=== PATIENT | female | born 1950 | race Caucasian/White ===

== ENCOUNTER → 2019-03-03 11:13 | Outpatient (CLI) | payer BC, SELFPAY ==
--- NOTE | 2019-03-03 | TISS_PTH ---
PATIENT: NEHEMIAH HYLTON LOC: [facility] U#:[id number] AGE/SX: 75/F ROOM: RE03/03/[address]: Dr. Talon Lopez DDS : 1950 BED: DIS: SPEC #: [id number] RECD: 03/03/19 10:10 STATUS: SHIRA PETRA #: [id number] DASHA: 03/03/19 00:[address]: Talon Lopez DEPT: SURGICAL PATHOLOGY RECD BY: Camila Keene ENTERED: 03/03/19 11:30 SP TYPE: Tissue Bx JUAN DANIEL DR: Kristen Carlson PA-C Tissues: Mouth, NOS Procedures: Surgery Specimen Level IV HEADER OPERATION: Biopsy, palate PRE-OP DIAGNOSIS: Appears as verrucous architecture, squamous papilloma TISSUE SUBMITTED: Palate MICROSCOPIC DIAGNOSIS Palate, biopsy: Hyperkeratosis. No evidence of malignancy. AM:joss 03/04/19 MICROSCOPIC DESCRIPTION Slides are reviewed. GROSS DESCRIPTION Received in fixative is one container labeled with the patient's name and designated palate. The specimen consists of a single irregular fragment of pink-mart soft tissue measuring 0.3 x 0.2 x 0.1 cm. The specimen is totally submitted in one cassette. / SJ:rg 03/03/19 TC:5 CPT: 40333
== END ==
PROVIDERS: Family Provider Family Medicine; PCP Family Medicine; Referring Provider Dentist Oral and Maxillofacial Surgery; Visit Provider Dentist Oral and Maxillofacial Surgery
DX: L85.9 Epidermal thickening, unspecified (principal)
CPT/HCPCS: 88305

== ENCOUNTER → 2019-06-29 12:47 | Outpatient (CLI) | payer MEDICARE, SELFPAY ==
[2019-06-29 12:08] VITALS: BMI 30.5
--- NOTE | 2019-06-29 12:55 | CT_ITS ---
STUDY: LOW DOSE CT LUNG CANCER SCREENING REASON FOR EXAM: Female, 69 years old. TOBACCO USE 1 PPD, 40 YEARS, 151LBS RADIATION DOSAGE (If Supplied By Facility): CTDIvol = ( 2.01 ) mGy, DLP = ( 59.92 ) mGycm TECHNIQUE: No contrast was administered. Low dose technique was utilized (average mAS-38 and kVp 120). 1.25 mm axial source images with a slice interval of 1.25-mm were reconstructed in lung windows. 2.5 mm axial source images with a slice interval of 2.5-mm were reconstructed in lung windows. 5.0 mm axial source images with a slice interval of 5.0-mm were reconstructed in soft tissue windows. Nodule measured using lung windows on PACS and/or independent workstation with automated measurement of minimum and maximum diameter. Nodule measurement reported as average diameter rounded to the nearest whole number. Growth is defined as an increase ins size of greater than 1.5 mm. COMPARISON: None. NODULES: There is an 8.4 mm x 8.4 mm irregular nodular density in the posterior aspect of the right lower lobe as seen on axial image #141. Emphysema: Diffuse emphysematous changes with bullous formation in both lungs. Bilateral apical scarring. Aorta: Atherosclerotic plaque formation. Coronary arteries: Coronary artery calcification. Heart: Calcification of the mitral valve annulus. Pulmonary artery: Unremarkable. Mediastinal nodes: Small benign-appearing mediastinal lymph nodes. Other chest and abdominal findings: Degenerative changes of the thoracic vertebrae. CT/Low Dose CT Lung Screening IMPRESSION: Lung-RADS category 4A - Screening at 3 months wiht LDCT or evaluation with PET/CT may be used. IMPORTANT NOTES FOR USE: ACR Lung-RADS Version 1.0 Assessment Categories Release Date: October 11, 2013 Category: Coded 0-4 bases on nodule(s) with highest degree of suspicion. Negative screen is defined as categories 1 and 2; a positive screen is defined as categories 3 and 4. Category 3 and 4A nodules that are unchanged on interval CT should be coded as category 2, and individuals returned to screening in 12 months. Category 4X: Category 3 or 4 nodules with additional imaging findings that increase the suspicion of lung cancer, such as spiculation, GGN that doubles in size in 1 year, enlarged lymph notes, etc. Category Modifiers: S (significant finding unrelated to lung cancer) and C (prior history of treated lung cancer) may be added to the 0-4 Lung-RADS Electronically Signed: Misha Troncoso, at 13:25 EST , Service support ,
== END ==
PROVIDERS: Family Provider Family Medicine; PCP Family Medicine; Referring Provider Nurse Practitioner Family; Visit Provider Nurse Practitioner Family
DX: F17.209 Nicotine dependence, unspecified, with unspecified nicotine-induced disorders (principal); Z12.2 Encounter for screening for malignant neoplasm of respiratory organs; Z87.891 Personal history of nicotine dependence
CPT/HCPCS: G0297

== ENCOUNTER → 2019-07-12 13:01 | Outpatient (CLI) | payer MEDICARE, SELFPAY ==
[2019-06-30 06:09] VITALS: BMI 30.7
== END ==
LOC: PSN 13:01
PROVIDERS: PCP Family Medicine; Referring Provider Nurse Practitioner Family; Visit Provider Nurse Practitioner Family
DX: F17.209 Nicotine dependence, unspecified, with unspecified nicotine-induced disorders (principal)
CPT/HCPCS: 99407

== ENCOUNTER → 2019-07-28 12:20 | Outpatient (CLI) | payer MEDICARE, SELFPAY ==
[2019-06-30 06:09] VITALS: BMI 30.7
[2019-07-28 12:30] VITALS: PULSE 100; PULSE 117; PULSE 88; PULSE 92; PULSE 93; PULSE 96; PULSE 97; O2SAT 92; O2SAT 94; O2SAT 95; O2SAT 96; O2SAT 97; O2SAT 98
--- NOTE | 2019-07-29 10:50 | PCM.PSN.6M ---
PSN 6 Minute Walk Test - 6 Minute Walk Test 6 Minute Walk Test: 6 Minute Walk Test PSN:6-Minute Walk Test Start: 07/28/19 12:53 Freq: Status: Active Protocol: [id number] Document 07/28/19 12:30 EW (Rec: 07/28/19 12:56 EW [id number]) 6 Minute Walk Test Date Performed 07/28/19 Time Performed 12:30 Height 4 ft 10 in Weight: 150 lb Weight in Pounds 150.[address]: Ac Coats Assistive device used: None Pre-test Oxygen Delivery Method Room Air Pulse Ox (%) 97 Pulse Rate (60-100 beats/min) 88 Dyspnea Dean Scale (0-10) 0 Exertion Dean Scale (6-20) 8 1st minute Oxygen Delivery Method Room Air Pulse Ox (%) 98 Pulse Rate (60-100 beats/min) 93 2nd minute Oxygen Delivery Method Room Air Pulse Ox (%) 94 Pulse Rate (60-100 beats/min) 100 3rd minute Oxygen Delivery Method Room Air Pulse Ox (%) 95 Pulse Rate (60-100 beats/min) 92 4th minute Oxygen Delivery Method Room Air Pulse Ox (%) 94 Pulse Rate (60-100 beats/min) 96 5th minute Oxygen Delivery Method Room Air Pulse Ox (%) 92 Pulse Rate (60-100 beats/min) 92 6th minute Oxygen Delivery Method Room Air Pulse Ox (%) 95 Pulse Rate (60-100 beats/min) 117 H Post-test Oxygen Delivery Method Room Air Pulse Ox (%) 96 Pulse Rate (60-100 beats/min) 97 Dyspnea Dean Scale (0-10) 2 Exertion Dean Scale (6-20) 11 Full Laps Walked 20 Partial Lap, Number of Tiles Walked 14 Total Distance Walked (ft) 1194 - Interpretation Interpretation: The patient ambulated 1194 feet over the course of 6 minutes beginning on room air without assistive devices or breaks. Pretesting oxygen saturation was noted to be 97% on room air. With ambulation, the tam oxygen saturation was 92%. This represents a significant exertional oxygen desaturation. - Recommendations Recommendations: There is no indication for the use of supplemental oxygen at this time. However, close interval follow-up is recommended, given the degree of oxygen desaturation noted during this study.
== END ==
PROVIDERS: Family Provider Family Medicine; PCP Family Medicine; Referring Provider Internal Medicine Critical Care Medicine; Visit Provider Internal Medicine Critical Care Medicine
DX: R06.00 Dyspnea, unspecified (principal); R91.1 Solitary pulmonary nodule; Z72.0 Tobacco use
CPT/HCPCS: 94618; 99407

== ENCOUNTER 2019-07-28 13:33 | Outpatient (RCR) | payer MEDICARE, SELFPAY ==
[2019-06-30 06:09] VITALS: BMI 30.7
== END 2019-08-14 23:59 ==
LOC: PSN 13:33
PROVIDERS: PCP Family Medicine; Referring Provider Nurse Practitioner Family; Visit Provider Nurse Practitioner Family
DX: R91.1 Solitary pulmonary nodule (principal); R06.00 Dyspnea, unspecified; F17.209 Nicotine dependence, unspecified, with unspecified nicotine-induced disorders

== ENCOUNTER → 2019-08-03 13:03 | Outpatient (CLI) | payer MEDICARE, SELFPAY ==
[2019-06-30 06:09] VITALS: BMI 30.7
--- NOTE | 2019-08-03 16:31 | PFTCOMP_ITS ---
COMPLETE PULMONARY FUNCTION TEST INTERPRETATION Brief HPI: Patient is a 69 year old female, currently under the care of myself, who presents to [facility] for complete pulmonary function tests secondary to diagnosis of dyspnea. Respiratory therapist reports good effort and reproducible results. Interpretation: Forced expiration spirometry shows no large airways obstructive ventilatory defect with an FEV1 of 102% predicted. There is no significant bronchodilator response by strict ATS criteria. Spirograms are of good quality and plateau slowly, indicating slowly emptying areas of the lungs. The respiratory flow volume loop shows decreased expiratory flow rates at high lung volumes consistent with small airways obstruction. Lung volumes by body plethysmography show a normal total lung capacity at 4.09 L, 107% predicted. All other lung volumes are within normal limits. Diffusion capacity by carbon monoxide is at the lower limit of normal at 62% predicted. The airway resistance is normal. No previous pulmonary function tests were available for review. Impression: Grossly normal pulmonary function test, but diffusing capacity is at the lower limit of normal, so early pulmonary vascular disorder cannot be excluded.
== END ==
PROVIDERS: Family Provider Family Medicine; PCP Family Medicine; Referring Provider Internal Medicine Critical Care Medicine; Visit Provider Internal Medicine Critical Care Medicine
DX: R06.00 Dyspnea, unspecified (principal); R91.1 Solitary pulmonary nodule; Z72.0 Tobacco use
CPT/HCPCS: 94060; 94726; 94729

== ENCOUNTER 2019-08-25 12:30 | Outpatient (RCR) | payer MEDICARE, SELFPAY ==
[2019-06-30 06:09] VITALS: BMI 30.7
== END 2019-09-14 23:59 ==
LOC: PSN 12:30
PROVIDERS: PCP Family Medicine; Referring Provider Nurse Practitioner Family; Visit Provider Nurse Practitioner Family
DX: F17.219 Nicotine dependence, cigarettes, with unspecified nicotine-induced disorders (principal)
CPT/HCPCS: 99407

== ENCOUNTER → 2019-09-24 12:49 | Outpatient (CLI) | payer MEDICARE, SELFPAY ==
[2019-06-30 06:09] VITALS: BMI 30.7
--- NOTE | 2019-09-24 12:50 | CT_ITS ---
STUDY: CT CHEST WITHOUT CONTRAST REASON FOR EXAM: Female, 69 years old. LUNG NODULE F/U RLL. SMOKER RADIATION DOSAGE (If Supplied By Facility): CTDIvol = ( 11.18 ) mGy, DLP = ( 373.88 ) mGycm TECHNIQUE: Transaxial imaging was performed without the administration of intravenous contrast material. Multiplanar coronal and sagittal images were reformatted. Individualized dose optimization techniques were used for this CT. COMPARISON: Comparison is made with prior study dated June 29, 2019. FINDINGS: Emphysema with subpleural bullous changes worse in the upper lobes. Stable scarring at the lung apices. The previously seen 8 mm x 8.4 mm nodular density in the posterior aspect of the right lower lobe is not seen at this time. There is no demonstrated pleural abnormality. There are calcifications of the coronary arteries. Calcification of the mitral valve annulus. Normal mediastinum. Normal hilar regions. Normal unenhanced pulmonary arteries. Normal aorta arch and descending thoracic aorta. There are multi-level degenerative changes of the thoracic spine. There is no demonstrated abnormality of the visualized upper abdomen. CT/Chest without Contrast IMPRESSION: Stable emphysematous changes with scarring at the lung apices. The previously seen nodular density in the right lower lobe is not seen at this time. Electronically Signed: Misha Troncoso, at 14:40 EDT , Service support ,
== END ==
PROVIDERS: PCP Family Medicine; Referring Provider Internal Medicine Critical Care Medicine; Visit Provider Internal Medicine Critical Care Medicine
DX: R06.00 Dyspnea, unspecified (principal); R91.1 Solitary pulmonary nodule; Z72.0 Tobacco use
CPT/HCPCS: 71250

== ENCOUNTER → 2020-08-31 13:00 | Outpatient (CLI) | payer MEDICARE, SELFPAY ==
[2020-04-05 13:17] VITALS: BMI 33.6
--- NOTE | 2020-08-31 15:53 | PFTCOMP_ITS ---
COMPLETE PULMONARY FUNCTION TEST INTERPRETATION Brief HPI: Patient is a 70 year old female, currently under the care of Betzy Crowe, who presents to [facility] for complete pulmonary function tests secondary to diagnosis of COPD. Respiratory therapist reports good effort and reproducible results. Interpretation: Forced expiration spirometry shows a mild large airways obstructive ventilatory defect with an FEV1 of 103% predicted. There is no significant bronchodilator response by strict ATS criteria. Spirograms are of good quality and plateau slowly, indicating slowly emptying areas of the lungs. The respiratory flow volume loop shows decreased expiratory flow rates at high lung volumes consistent with small airways obstruction. Lung volumes by body plethysmography show a normal total lung capacity at 4.25 L, 106% predicted. All other lung volumes are within normal limits. Diffusion capacity by carbon monoxide is decreased at 57% predicted. The airway resistance is slightly elevated. Compared to previous pulmonary function tests from 08/03/2019, there has been no significant change. Impression: Irreversible mild large airways obstructive ventilatory defect with a disproportionate reduction in diffusing capacity, but no significant metal mover the last year.
== END ==
PROVIDERS: PCP Family Medicine; Referring Provider Nurse Practitioner Acute Care; Visit Provider Nurse Practitioner Acute Care
DX: J44.9 Chronic obstructive pulmonary disease, unspecified (principal)
CPT/HCPCS: 94060; 94726; 94729

== ENCOUNTER → 2021-01-09 13:37 | Outpatient (CLI) | payer MEDICARE, SELFPAY ==
[2020-09-04 13:00] VITALS: BMI 33.9
[2021-01-09 13:09] VITALS: BMI 32.0
--- NOTE | 2021-01-09 13:38 | CT_ITS ---
STUDY: LOW DOSE CT LUNG CANCER SCREENING REASON FOR EXAM: Female, 70 years old. Lung cancer screening -- and amp;gt;30 pack year history, current smoker; asymptomatic RADIATION DOSAGE (If Supplied By Facility): CTDIvol = ( 1.59 ) mGy, DLP = ( 51.82 ) mGycm TECHNIQUE: No contrast was administered. Low dose technique was utilized (average mAS-38 and kVp 120). 1.25 mm axial source images with a slice interval of 1.25-mm were reconstructed in lung windows. 2.5 mm axial source images with a slice interval of 2.5-mm were reconstructed in lung windows. 5.0 mm axial source images with a slice interval of 5.0-mm were reconstructed in soft tissue windows. Nodule measured using lung windows on PACS and/or independent workstation with automated measurement of minimum and maximum diameter. Nodule measurement reported as average diameter rounded to the nearest whole number. Growth is defined as an increase ins size of greater than 1.5 mm. COMPARISON: Comparison is made with prior study dated 06/29/2019. NODULES: 8 mm nodular density in the posterior aspect of the right lower lobe. Mild degree of the reticular nodular scarring at the lung bases. Emphysema: Stable emphysematous changes more prominent in the upper lobes. Endobronchial lesion: None Aorta: Atherosclerotic plaque formation of the aortic arch. Coronary arteries: Coronary artery calcification. Heart: Calcifications mitral valve annulus. Mediastinal nodes: Small benign appearing mediastinal lymph nodes. Other chest and abdominal findings: CT/Low Dose CT Lung Screening IMPRESSION: Lung-RADS category 2 - Continue annual screening with LDCT in 12 months. IMPORTANT NOTES FOR USE: ACR Lung-RADS Version 1.1 Assessment Categories Release Date: 2018 Category: Coded 0-4 bases on nodule(s) with highest degree of suspicion. Negative screen is defined as categories 1 and 2; a positive screen is defined as categories 3 and 4. Category 3 and 4A nodules that are unchanged on interval CT should be coded as category 2, and individuals returned to screening in 12 months. Category 4X: Category 3 or 4 nodules with additional imaging findings that increase the suspicion of lung cancer, such as spiculation, GGN that doubles in size in 1 year, enlarged lymph notes, etc. Category Modifiers: S (significant finding unrelated to lung cancer) Electronically Signed: Misha Troncoso MD at 14:00 EDT , Service support ,
== END ==
PROVIDERS: PCP Family Medicine; Referring Provider Nurse Practitioner Family; Visit Provider Nurse Practitioner Family
DX: Z12.2 Encounter for screening for malignant neoplasm of respiratory organs (principal); Z87.891 Personal history of nicotine dependence
CPT/HCPCS: 71271

== ENCOUNTER → 2021-03-28 13:02 | Outpatient (CLI) | payer MEDICARE, SELFPAY ==
--- NOTE | 2021-03-28 13:07 | ECHOCS_ITS ---
Reason For Study: CAD/ASHD Procedure This was a 2D Doppler, Color Flow transthoracic echocardiogram. The study was technically difficult. Exam performed in department. Left Ventricle Normal LV size. Left ventricular systolic function is normal. The estimated ejection fraction is 65 %. Stage 1 diastolic dysfunction. No regional wall motion abnormalities noted. Right Ventricle Normal RV size. Normal systolic function. Atria Normal left atrium. Normal right atrium. Mitral Valve There is mild to moderate mitral annular calcification. Trivial mitral valve insufficiency. Tricuspid Valve Normal tricuspid valve. Mild tricuspid valve insufficiency. Pulmonary artery systolic pressure is 28 mmHg. Aortic Valve Trisinus/trileaflet aortic valve. Mild focal aortic valve calcification. Mild (1+) aortic valve insufficiency. Pulmonic Valve Normal pulmonic valve. Great Vessels Normal aortic root. The pulmonary artery is normal size. Normal inferior vena cava. Pericardium/Pleural No pericardial effusion. Medication 22 gauge I.V. with prn adaptor inserted into right arm. Performed a rapid injection of agitated mix of 9 cc saline and 1cc air to assess for atrial septal defect. Diluted definity 2ml given slow IV push to enhance endocardial definition. MMode/2D Measurements & Calculations LVIDd: 4.0 cm IVSd: 1.1 cm Ao root diam: 3.2 cm LVIDs: 2.6 cm LVPWd: 1.1 cm RVDd: 2.8 cm FS: 36.0 % LAV(MOD-bp): 41.0 ml LVAd ap4: 29.7 cm2 SV(MOD-sp4): 66.6 ml LAV(MOD-bp) Indexed: 24.6 ml/m2 LVLd ap4: 7.0 cm LAV(MOD-sp2): 38.6 ml EDV(MOD-sp4): 101.1 ml LAV(MOD-sp4): 39.5 ml EDV(sp4-el): 107.3 ml LVAs ap4: 15.2 cm2 LVLs ap4: 5.4 cm ESV(MOD-sp4): 34.5 ml ESV(sp4-el): 36.1 ml EF(MOD-sp4): 65.9 % EF(sp4-el): 66.3 % SV(sp4-el): 71.1 ml LA A4 area: 16.4 cm2 LA dimension(2D): 3.2 cm RA A4 area: 11.1 cm2 Time Measurements MV dec time: 0.31 sec Doppler Measurements & Calculations MV E max rancho: 115.0 cm/sec Lat Peak E' Rancho: 6.7 cm/sec Med Peak E' Rancho: 6.0 cm/sec MV A max rancho: 148.4 cm/sec E/E' lat: 17.1 E/E' med: 19.1 MV E/A: 0.77 MV V2 max: 158.4 cm/sec MV P1/2t max rancho: 105.0 cm/sec Ao V2 max: 158.3 cm/sec MV max P.0 mmHg MV P1/2t: 91.3 msec Ao max P.0 mmHg MV V2 mean: 95.3 cm/sec MV dec slope: 336.8 cm/sec2 MV mean P.2 mmHg MVA(P1/2t): 2.4 cm2 MV V2 VTI: 42.4 cm AI max rancho: 376.6 cm/sec LV V1 max: 110.2 cm/sec PA V2 max: 90.3 cm/sec AI max P.8 mmHg LV V1 max P.9 mmHg AI dec slope: 210.2 cm/sec2 AI P1/2t: 524.7 msec TR max rancho: 248.2 cm/sec MV P1/2t-pr_phl: 89.1 msec TR max P.6 mmHg ECHO/Echo Complete W/ Contrast Interpretation Summary Normal LV size. Left ventricular systolic function is normal. The estimated ejection fraction is 65 %. There is mild to moderate mitral annular calcification. Mild (1+) aortic valve insufficiency. Stage 1 diastolic dysfunction. Ordering Physician: Eloy Chowdary Referring Physician: ASHLEY HART Performed By: Isabella Alarcon RDCS
== END ==
PROVIDERS: PCP Family Medicine; Referring Provider Internal Medicine Cardiovascular Disease; Visit Provider Internal Medicine Cardiovascular Disease
DX: I25.10 Atherosclerotic heart disease of native coronary artery without angina pectoris (principal); R06.09 Other forms of dyspnea
CPT/HCPCS: 93306; Q9957; A4216; C8929; J3490

== ENCOUNTER → 2021-04-04 06:37 | Outpatient (CLI) | payer MEDICARE, SELFPAY ==
--- NOTE | 2021-04-04 13:09 | STRESSREP ---
Stress Test Report Exercise myocardial perfusion stress test. 70-year-old lady with a history of chest pain. Stress protocol: Resting EKG demonstrates normal sinus rhythm with a rate of 65 bpm normal intervals are noted resting blood pressure is 118/84 mmHg. The patient exercised according to regular Ac protocol for 3 minutes and 30 seconds the maximum heart rate attained was 136 bpm which was 90% of maximum protected heart rate the maximum workload was 5.7 metabolic equivalents. At rest there were no ST or T wave changes noted suggest ischemia and at peak exercise upsloping ST changes were noted with did not meet the criteria for ischemia. No clinical angina was noted the test was terminated due to bilateral leg weakness. The peak blood pressure is 146/80 mmHg. Myocardial perfusion protocol. 11.1 mCi of technetium 99m sestamibi was injected at rest. The patient exercised according to regular Ac protocol for 3 minutes and 30 seconds and at peak exercise 33.7 mCi of technetium 99m sestamibi was injected stress images were obtained stress and rest images were reconstructed and compared in the short axis vertical long horizontal long axis. Gated images were also obtained. Perfusion SPECT analysis: Review of the stress images demonstrate normal uptake of tracer noted in all areas of the myocardium. The resting images similarly demonstrate normal uptake of tracer noted in all areas of the myocardium. No areas of reversibility are noted to suggest ischemia and no previous infarct is noted. Gated SPECT analysis: The gated ejection fraction is 77%. Conclusion: Normal exercise myocardial perfusion stress test. Preserved ejection fraction. The low workload attained may affect sensitivity for detection of ischemia.
== END ==
PROVIDERS: PCP Family Medicine; Referring Provider Internal Medicine Cardiovascular Disease; Visit Provider Internal Medicine Cardiovascular Disease
DX: R94.31 Abnormal electrocardiogram [ECG] [EKG] (principal); I05.9 Rheumatic mitral valve disease, unspecified; I25.10 Atherosclerotic heart disease of native coronary artery without angina pectoris; J44.9 Chronic obstructive pulmonary disease, unspecified; R03.0 Elevated blood-pressure reading, without diagnosis of hypertension; R53.83 Other fatigue; R73.03 Prediabetes; E66.9 Obesity, unspecified; F17.200 Nicotine dependence, unspecified, uncomplicated
CPT/HCPCS: 78452; 93017; A9500; A4216

== ENCOUNTER → 2021-06-06 11:50 | Outpatient (CLI) | payer MEDICARE, SELFPAY ==
[2021-06-06 12:52] LABS: Anion Gap 9 (5-15); BUN 15 mg/dL (7-18); BUN/Creat Ratio 19.9 RATIO (10-20); Calcium,Total 9.4 mg/dL (8.5-10.1); Chloride 100 mmol/L (98-107); Creatinine, Serum 0.75 mg/dL (0.55-1.02); EST Glomerular Filtration Rate 81 mL/min (>60); Est Glom Filt Rate - Afr Amer 98 mL/min (>60); Glucose 109 mg/dL (74-106); Potassium 4.1 mmol/L (3.5-5.1); Sodium Level 138 mmol/L (136-145)
== END ==
PROVIDERS: PCP Family Medicine; Referring Provider Nurse Practitioner Gerontology; Visit Provider Nurse Practitioner Gerontology
DX: R03.0 Elevated blood-pressure reading, without diagnosis of hypertension (principal)
CPT/HCPCS: 36415; 80048

== ENCOUNTER 2021-09-05 09:39 | Outpatient (CLI) | payer MEDICARE, SELFPAY ==
[2021-09-05 10:28] LABS: Absolute Lymphocyte Count 1.05 X10^3/uL (0.83-4.51); Absolute Neutrophil Count 5.1 X10^3/uL (2.0-7.7); Basophil# 0.06 X10^3/uL; Basophil% 0.9 % (0-1); Eosinophil# 0.07 X10^3/uL; Hematocrit 43.8 % (37-47); Hemoglobin 14.8 g/dL (12.0-15.0); Lymphocyte # 1.05 X10^3/ul (0.83-4.51); Lymphocyte % 15.1 % (19-41); Mean Corp Hgb Conc 33.8 g/dL (32-36); Mean Corpuscular Hgb 31.1 pg (27.0-32.0); Mean Platelet Vol. 9.4 fl (6.2-12.0); Monocyte# 0.66 X10^3/uL; Monocyte% 9.5 % (0-10); NRBC Flagged by Analyzer 0 % (0-5); Neutrophil # 5.09 X10^3/uL (2.7-7.7); Neutrophil % 72.9 % (47-70); Platelet Count 195 K/mm3 (150-450); RBC Distribution Width CV 13.9 % (11.6-14.6); RBC Distribution Width SD 47.5 fl (35.1-43.9); Red Blood Count 4.76 M/mm3 (4.2-5.4)
[2021-09-05 11:04] LABS: Anion Gap 5 (5-15); BUN 25 mg/dL (7-18); BUN/Creat Ratio 29.3 RATIO (10-20); Calcium,Total 10.1 mg/dL (8.5-10.1); Chloride 100 mmol/L (98-107); Creatinine, Serum 0.85 mg/dL (0.55-1.02); EST Glomerular Filtration Rate 70 mL/min (>60); Est Glom Filt Rate - Afr Amer 85 mL/min (>60); Glucose 105 mg/dL (74-106); Potassium 4.2 mmol/L (3.5-5.1); Sodium Level 137 mmol/L (136-145); T4 Free Direct 0.93 ng/dL (0.76-1.46); Thyroid Stim Hormone (TSH) 3.64 uIU/mL (0.358-3.74)
== END 2021-09-05 23:59 | disposition home or self-care (01) ==
LOC: LAB 09:40
PROVIDERS: PCP Family Medicine; Referring Provider Nurse Practitioner Gerontology; Visit Provider Nurse Practitioner Gerontology
DX: R53.83 Other fatigue (principal)
CPT/HCPCS: 36415; 80048; 84439; 84443; 85025

== ENCOUNTER → 2022-02-19 | Outpatient (CLI) | payer MEDICARE, SELFPAY ==
--- NOTE | 2022-02-19 13:15 | CT_ITS ---
STUDY: LOW DOSE CT LUNG CANCER SCREENING REASON FOR EXAM: Female, 71 years old. Lung cancer screening -- and gt; 30 ppd; current smoker; asymptomatic RADIATION DOSAGE (If Supplied By Facility): CTDIvol = ( 3.02 ) mGy, DLP = ( 97.42 ) mGycm TECHNIQUE: No contrast was administered. Low dose technique was utilized (average mAS-38 and kVp 120). 1.25 mm axial source images with a slice interval of 1.25-mm were reconstructed in lung windows. 2.5 mm axial source images with a slice interval of 2.5-mm were reconstructed in lung windows. 5.0 mm axial source images with a slice interval of 5.0-mm were reconstructed in soft tissue windows. COMPARISON: 01/09/2021 NODULES: NODULES: The previously described 8 mm nodular density in the posterior aspect of the right lower lobe is no longer seen. There is an elongated opacity in the anterior segment of right upper lobe axial image #92 through 96 most likely represent a scar. There is a subpleural 3 mm nodule in the superior segment of the right lung upper lobe axial image #50 is stable since the previous study. Emphysema: Stable emphysematous changes more prominent in the upper lobes. Endobronchial lesion: None Aorta: Atherosclerotic plaque formation of the aortic arch. There is an ascending aortic aneurysm measures 4.1 cm. Coronary arteries: Coronary artery calcification. Heart: Calcifications mitral valve annulus. Mediastinal nodes: Small benign appearing mediastinal lymph nodes. Other chest and abdominal findings: CT/Low Dose CT Lung Screening IMPRESSION: Lung-RADS category 2 - Continue annual screening with LDCT in 12 months. IMPORTANT NOTES FOR USE: ACR Lung-RADS Version 1.1 Assessment Categories Release Date: 2018 Category: Coded 0-4 bases on nodule(s) with highest degree of suspicion. Negative screen is defined as categories 1 and 2; a positive screen is defined as categories 3 and 4. Category 3 and 4A nodules that are unchanged on interval CT should be coded as category 2, and individuals returned to screening in 12 months. Category 4X: Category 3 or 4 nodules with additional imaging findings that increase the suspicion of lung cancer, such as spiculation, GGN that doubles in size in 1 year, enlarged lymph notes, etc. Category Modifiers: S (significant finding unrelated to lung cancer) Electronically Signed: Germaine Matson MD at 16:12 EDT ,
== END | disposition home or self-care (01) ==
LOC: CT 13:08
PROVIDERS: PCP Family Medicine; Referring Provider Nurse Practitioner Family; Visit Provider Nurse Practitioner Family
DX: Z12.2 Encounter for screening for malignant neoplasm of respiratory organs (principal); Z87.891 Personal history of nicotine dependence
CPT/HCPCS: 71271

== ENCOUNTER 2022-03-12 06:27 | Day surgery (SDC) | payer MEDICARE, SELFPAY ==
--- NOTE | 2022-03-12 07:03 | HP.PCM_ITS ---
[facility] - General General Date of Service: 03/12/22 Chief Complaint: Screening for intestinal cancer [facility] Narrative NEHEMIAH HYLTON, is a 71 F who presents for a screening colonoscopy. She presents via open access today. Previous colonoscopy that we have documented 2014. No personal history of colon polyps. She does have a family history of colon cancer in her father. Fortunately she has not had any bright red blood per rectum or melena. No abdominal pain other than some generalized bloating. No history of DVT. [facility] Medical History (Updated 03/12/22 @ 07:[address] Hadley Donovan MD) Alcohol use Ascending aortic aneurysm Atrophic vaginitis Back pain Cardiology follow-up encounter Cellulitis Chronic hepatitis C without hepatic coma Coronary artery calcification seen on CAT scan Emphysema, unspecified Encounter for screening for malignant neoplasm of lung in current smoker with 30 pack year history or greater (01/09/21) Hepatitis History of colon polyps History of echocardiogram History of stress test Hypertension Lesion of soft palate Liver hemangioma Lung nodule seen on imaging study Mitral valve annular calcification Nicotine dependence Obesity Prediabetes Psoriasis Shortness of breath on exertion Smoker Tobacco abuse Wears glasses Home Medications cholecalciferol (vitamin D3) 125 mcg (5,000 unit) capsule 125 mcg PO DAILY 02/16/21 [History Last Taken Unknown] calcium citrate 500 mg PO DAILY 06/06/21 [History Last Taken Unknown] losartan 50 mg-hydrochlorothiazide 12.5 mg tablet 1 tab PO DAILY #90 tabs 06/06/21 [Rx Last Taken Unknown] magnesium glycinate 100 mg tablet 175 mg PO DAILY 06/06/21 [History Last Taken Unknown] biotin 500 mcg capsule 1 mg PO DAILY 03/08/22 [History Last Taken Unknown] zinc 50 mg tablet 50 mg PO DAILY 03/08/22 [History Last Taken Unknown] Allergy/AdvReac Type Severity Reaction Status Date / Time codeine AdvReac Itching Verified 03/12/22 07:04 Family History Father Colon cancer Hypertension Heart disease carotidendarterectomy Mother Hypertension Goiter COPD (chronic obstructive pulmonary disease) Grandfather Hypertension maternal and paternal Grandmother Hypertension maternal and paternal Leukemia maternal Aunt Breast cancer maternal great aunt, passed at 32 years old Surgical History (Updated 03/08/22 @ 09:26 by Althea Lopez) H/O total hysterectomy History of colonoscopy Hx of surgical procedure Social History (Updated 02/19/22 @ 12:33 by Pilar Rodríguez) Smoking Status: Current every day smoker tobacco type: cigarettes Tobacco: How many years used: 40 Electronic Cigarette Use: not used how long ago did patient quit smoking: Patient reports she is currently smoking 6 cigarettes per day. second hand exposure: Yes quit status: considering quitting counseling given: provider counseling alcohol intake: current Alcohol type: beer substance use type: does not use ROS Constitutional Constitutional: Reports systems reviewed and no addt'l complaints, except as documented Cardiovascular Cardiovascular: Denies chest pain Respiratory/Chest Respiratory/Chest: Denies shortness of breath at rest Gastrointestinal Gastrointestinal: Denies abdominal pain, change in bowel habits, hematochezia or melena Physical Exam Const alert, oriented x3 and no apparent distress General Appearance: cooperative and comfortable Eyes General Eye: normal appearance of both eyes Neck General: normal visual inspection Chest inspection of chest normal Resp Effort and Inspection: able to speak in complete sentences and symmetric chest movement Auscultation: clear to auscultation bilaterally Cardio regular rate and regular rhythm GI soft to palpation, non-tender and non-distended Extremity no calf tenderness Neuro oriented x3 Psych thought process normal Assessment & Plan Assessment/Plan (1) Family history of colon cancer in father: PLAN: The patient presents via open access today. Plan to proceed with a surveillance colonoscopy with possible biopsy or polypectomy as indicated. She is aware of the technique, benefit, risk, alternatives. She has had an opportunity to ask and have questions answered. We will proceed as noted. Hadley Donovan M.D., F.A.C.S.
[2022-03-12 07:07] VITALS: BP 135/74; PULSE 78; RESP 16; TEMP 36.4; O2SAT 99; BMI 32.5
[2022-03-12] MEDS: Lactated Ringers 1,000 ML 15 ML IV (07:30)
--- NOTE | 2022-03-12 07:30 | COLBX_PTH ---
PATIENT: NEHEMIAH HYLTON LOC: EN U#:[id number] AGE/SX: 71/F ROOM: RE03/12/[address]: Dr. Hadley Donovan MD : 1950 BED: DIS: 03/12/2022 SPEC #: [id number] RECD: 03/12/22 11:50 STATUS: SHIRA PETRA #: [id number] DASHA: 03/12/22 07:[address]: Hadley Donovan DEPT: SURGICAL PATHOLOGY RECD BY: Mireya Gillis ENTERED: 03/12/22 12:36 SP TYPE: COLON BX OTHR DR: Kristen Carlson PA-C Tissues: A - Ascending colon B - Ascending colon C - Rectum, NOS Procedures: Surgery Specimen Level IV HEADER OPERATION: Colonoscopy ? open access (MAC) PRE-OP DIAGNOSIS: Family history of colon cancer in father TISSUE SUBMITTED: A ? Mid ascending colon polyp, B - Mid ascending colon polyp biopsy #2, C ? Biopsy of rectum polyp MICROSCOPIC DIAGNOSIS A. Mid ascending colon polyp, biopsy: Fragments of tubular adenoma. B. Mid ascending colon polyp #2, biopsy: Fragments of colonic mucosa, no pathologic diagnosis. C. Rectum polyp, biopsy: Fragments of hyperplastic polyp. UMESH:joss 03/13/2022 MICROSCOPIC DESCRIPTION Slides are reviewed. GROSS DESCRIPTION A - Received in fixative is one container labeled with the patient's name and designated mid ascending colon polyp. The specimen consists of multiple irregular fragments of light mart soft tissue that in aggregate measure 0.8 x 0.3 x 0.1 cm. The specimen is totally submitted in one cassette. B - Received in fixative is one container labeled with the patient's name and designated mid ascending colon polyp biopsy #2. The specimen consists of multiple irregular fragments of light mart soft tissue that in aggregate measure 0.8 x 0.3 x 0.1 cm. The specimen is totally submitted in one cassette. C - Received in fixative is one container labeled with the patient's name and designated biopsy of rectum polyp. The specimen consists of multiple irregular fragments of light mart soft tissue that in aggregate measure 1 x 0.3 x 0.1 cm. The specimen is totally submitted in one cassette. / UMESH:joss 03/12/2022 TC:1 CPT: 66678 x3
[2022-03-12 08:20] VITALS: BP 126/81; BP 135/74; PULSE 84; RESP 16; TEMP 36.2; O2SAT 97
--- NOTE | 2022-03-12 08:22 | OP.CCLET_ITS ---
03/12/2022 [facility] Re : Colonoscopy procedure for Jany Carlson This procedure was performed on Saturday, March 12, 2022. My impressions and recommendations are as follows: Impressions : - Hemorrhoids found on perianal exam. - One 7 mm polyp in the mid ascending colon, removed with a hot snare. Resected and retrieved. - One 3 mm polyp in the mid ascending colon, removed with a cold biopsy forceps. Resected and retrieved. - One polyp in the rectum, removed with a cold biopsy forceps. Resected and retrieved. - Diverticulosis in the sigmoid colon and in the descending colon. Recommendations : - Discharge patient to home. - Resume previous diet. - Continue present medications. - Repeat colonoscopy in 5 years for surveillance. - Telephone my office for pathology results in 1 week. My findings are described in the full procedure note, which is enclosed. If I can be of further assistance, please feel free to contact me at Doctor phone number(s): Work: . Sincerely, Hadley Donovan MD 03/12/2022 8:21:22 AM This report has been signed electronically.
--- NOTE | 2022-03-12 08:22 | OP.COLON_ITS ---
Patient Name: Jany Quintero Procedure Date: 03/12/2022 7:44 AM Date of : 1950 Age: 71 Procedure: Colonoscopy Indications: High risk colon cancer surveillance: Personal history of colonic polyps, Family history of colon cancer in a first-degree relative Providers: Hadley Donovan MD Referring MD: Hadley Donovan MD Medicines: See the Anesthesia note for documentation of the administered medications Patient Profile: Last Colonoscopy: 2014. Complications: No immediate complications. Procedure: Pre-Anesthesia Assessment: - Prior to the procedure, a History and Physical was performed, and patient medications and allergies were reviewed. The patient's tolerance of previous anesthesia was also reviewed. The risks and benefits of the procedure and the sedation options and risks were discussed with the patient. All questions were answered, and informed consent was obtained. Prior Anticoagulants: The patient has taken no previous anticoagulant or antiplatelet agents. ASA Grade Assessment: III - A patient with severe systemic disease. After reviewing the risks and benefits, the patient was deemed in satisfactory condition to undergo the procedure. After I obtained informed consent, the scope was passed under direct vision. Throughout the procedure, the patient's blood pressure, pulse, and oxygen saturations were monitored continuously. The pediatric colonoscope was introduced through the anus and advanced to the cecum, identified by appendiceal orifice and ileocecal valve. The colonoscopy was somewhat difficult due to significant looping. The patient tolerated the procedure well. The quality of the bowel preparation was good. The ileocecal valve and the appendiceal orifice were photographed. Scope In: 7:51:03 AM Scope Withdrawal Time 0 hours 14 minutes 36 seconds Scope Out: 8:14:55 AM Total Procedure Duration Time 0 hours 23 minutes 52 seconds Findings: Hemorrhoids were found on perianal exam. A 7 mm polyp was found in the mid ascending colon. The polyp was sessile. The polyp was removed with a hot snare. Resection and retrieval were complete. A 3 mm polyp was found in the mid ascending colon. The polyp was sessile. The polyp was removed with a cold biopsy forceps. Resection and retrieval were complete. A polyp was found in the rectum. The polyp was sessile. The polyp was removed with a cold biopsy forceps. Resection and retrieval were complete. Multiple diverticula were found in the sigmoid colon and descending colon. Impression: - Hemorrhoids found on perianal exam. - One 7 mm polyp in the mid ascending colon, removed with a hot snare. Resected and retrieved. - One 3 mm polyp in the mid ascending colon, removed with a cold biopsy forceps. Resected and retrieved. - One polyp in the rectum, removed with a cold biopsy forceps. Resected and retrieved. - Diverticulosis in the sigmoid colon and in the descending colon. Recommendation: - Discharge patient to home. - Resume previous diet. - Continue present medications. - Repeat colonoscopy in 5 years for surveillance. - Telephone my office for pathology results in 1 week. Procedure Code(s): --- Professional --- 88851, Colonoscopy, flexible; with removal of tumor(s), polyp(s), or other lesion(s) by snare technique 69843, 59, Colonoscopy, flexible; with biopsy, single or multiple Diagnosis Code(s): --- Professional --- Z86.010, Personal history of colonic polyps K64.9, Unspecified hemorrhoids D12.2, Benign neoplasm of ascending colon K62.1, Rectal polyp Z80.0, Family history of malignant neoplasm of digestive organs K57.30, Diverticulosis of large intestine without perforation or abscess without bleeding CPT copyright 2017 [employer]. All rights reserved. The codes documented in this report are preliminary and upon blister packaging machine operator review may be revised to meet current compliance requirements. Hadley Donovan MD 03/12/2022 8:21:22 AM This report has been signed electronically. Number of Addenda: 0 Note Initiated On: 03/12/2022 7:44 AM
[2022-03-12 08:25] VITALS: BP 119/93; BP 135/74; PULSE 81; RESP 16; O2SAT 99
[2022-03-12 08:30] VITALS: BP 130/76; BP 135/74; PULSE 90; RESP 18; O2SAT 97
[2022-03-12 08:34] VITALS: BP 104/63; BP 135/74; PULSE 75; RESP 18; TEMP 36.9; O2SAT 100
[2022-03-12 08:41] VITALS: BP 135/74
== END 2022-03-12 09:11 | disposition home or self-care (01) ==
LOC: EN 06:27 → AC 06:28
PROVIDERS: PCP Family Medicine; Referring Provider Surgery; Visit Provider Surgery
PROC: 0DJD8ZZ Inspection of Lower Intestinal Tract, Via Natural or Artificial Opening Endoscopic (ICD-10-PCS; CPT 45378; principal; 2022-03-12 07:25)
DX: Z12.11 Encounter for screening for malignant neoplasm of colon (principal); J43.9 Emphysema, unspecified; I71.2 Thoracic aortic aneurysm, without rupture; B18.2 Chronic viral hepatitis C; D12.2 Benign neoplasm of ascending colon; K62.1 Rectal polyp; K57.30 Diverticulosis of large intestine without perforation or abscess without bleeding; K64.4 Residual hemorrhoidal skin tags; I10 Essential (primary) hypertension; I25.10 Atherosclerotic heart disease of native coronary artery without angina pectoris; E66.9 Obesity, unspecified; F17.210 Nicotine dependence, cigarettes, uncomplicated; Z79.899 Other long term (current) drug therapy; Z72.89 Other problems related to lifestyle; Z68.32 Body mass index [BMI] 32.0-32.9, adult; Z86.010 Personal history of colon polyps; Z80.3 Family history of malignant neoplasm of breast; Z80.0 Family history of malignant neoplasm of digestive organs
CPT/HCPCS: 45385; 45380; 88305; J7120; J2405

== ENCOUNTER → 2022-05-30 | Outpatient (CLI) | payer MEDICARE, SELFPAY ==
[2022-05-30 13:15] LABS: AST(SGOT) 22 U/L (15-37); Alanine Aminotransfer ALT/SGPT 35 U/L (13-56); Alkaline Phosphatase 74 U/L (45-117); Bilirubin, Direct 0.16 mg/dL (0.00-0.30); Cholesterol 204 mg/dL (200); Globulin 3.3 g/dL (2.2-4.2); High Density Lipoprotein 47 mg/dL; Protein, Total 7.3 g/dL (6.4-8.2); Triglycerides 105 mg/dL; Very Low Density Lipoprotein 21 mg/dL (5-40)
== END | disposition home or self-care (01) ==
LOC: LAB 12:06
PROVIDERS: PCP Family Medicine; Visit Provider Internal Medicine Cardiovascular Disease
DX: E78.00 Pure hypercholesterolemia, unspecified (principal)
CPT/HCPCS: 36415; 80061; 80076

== ENCOUNTER → 2022-06-26 | Outpatient (CLI) | payer MEDICARE, SELFPAY ==
--- NOTE | 2022-06-26 17:50 | STRESSREP ---
Stress Test Report Pharmacologic myocardial perfusion stress test. 72-year-old lady with a history of coronary artery disease Resting EKG demonstrates sinus bradycardia with a rate of 71 bpm. Resting blood pressure is 128/82 mmHg. 0.4 mg of regadenoson was infused per usual protocol followed by rapid intravenous saline flush injection. Continuous EKG monitoring was performed. The maximum heart rate was 93 bpm which was 62% of max impacted heart rate the maximum workload was 1 metabolic equivalent. At rest there were no ST or T wave changes noted to suggest ischemia and at peak infusion nonspecific ST changes were noted with did not meet the criteria for ischemia. Occasional premature ventricular complexes noted. No clinical angina is noted. The final blood pressure was 124/80 mmHg. Myocardial perfusion protocol. 11.9 mCi of technetium 99m sestamibi was injected at rest. 0.4 mg of regadenoson was infused per usual protocol. At peak infusion 34.4 mCi of technetium 99m sestamibi was injected stress images were obtained stress and rest images were reconstructed and compared in the short axis vertical long and horizontal long axis. Gated images were also obtained. Perfusion SPECT analysis: Review of the stress images demonstrate normal uptake of tracer noted in all areas of the myocardium. The resting images similar demonstrated normal uptake of tracer noted in all areas of the myocardium. No areas of reversibility are noted to suggest ischemia and no previous infarct is noted. Gated SPECT analysis: The gated ejection fraction is 59%. Conclusion: Normal pharmacologic myocardial perfusion stress test. Preserved ejection fraction.
== END | disposition home or self-care (01) ==
LOC: CVS 06:50
PROVIDERS: PCP Family Medicine; Visit Provider Internal Medicine Cardiovascular Disease
DX: I25.10 Atherosclerotic heart disease of native coronary artery without angina pectoris (principal)
CPT/HCPCS: 78452; 93017; A9500; A4216; J2785

== ENCOUNTER → 2023-06-06 | Outpatient (CLI) | payer MEDICARE, SELFPAY ==
--- NOTE | 2023-06-06 12:58 | CDU_ITS ---
Reason For Study: DIZZINESS Rt. Velocities/BP Lt. Velocities/BP Prox CCA 91.0/27.7 cm/sec. Prox CCA 77.1/26.1 cm/sec. Mid CCA 95.7/34.3 cm/sec. Mid CCA 102.9/34.7 cm/sec. Dist CCA 87.2/27.7 cm/sec. Dist CCA 82.0/27.0 cm/sec. Prox ICA 81.7/21.2 cm/sec. Prox ICA 69.5/22.8 cm/sec. Mid ICA 83.9/28.9 cm/sec. Mid ICA 80.6/38.8 cm/sec. Dist ICA 49.0/16.3 cm/sec. Dist ICA 95.3/30.2 cm/sec. Rt. ICA/CCA = 83.9/95.7=0.9. Lt. ICA/CCA = 95.3/102.9=0.9. Prox ECA 106.9/16.8 cm/sec. Prox ECA 88.6/14.5 cm/sec. Rt. Vert. 36.2/11.3 cm/sec. Lt. Vert. 45.0/11.0 cm/sec. Right Extracranial There is homogeneous, smooth atherosclerotic plaque noted in the right common carotid artery. There is heterogeneous, irregular atherosclerotic plaque noted in the right internal carotid artery. There is intimal thickening but no significant atherosclerotic plaque noted in the right external carotid artery. Antegrade flow is noted in the right vertebral artery. Left Extracranial There is homogeneous, smooth atherosclerotic plaque noted in the left common carotid artery. There is heterogeneous, irregular atherosclerotic plaque noted in the left internal carotid artery. There is heterogeneous, smooth atherosclerotic plaque noted in the left external carotid artery. Antegrade flow is noted in the left vertebral artery. Procedure Carotid Duplex 70352. This is a Carotid Duplex examination using B-mode, color flow and specral Doppler. Exam performed in department. VL/Carotid Duplex Ultrasound Interpretation Summary Mild (<50%) stenosis right extracranial internal carotid. Mild (<50%) stenosis left extracranial internal carotid. Patent and antegrade vertebrals bilaterally. Ordering Physician: Taylor Flores Referring Physician: Taylor Flores Performed By: Emily Post, MURTAZA, RVT
== END | disposition home or self-care (01) ==
LOC: CVS 12:58
PROVIDERS: PCP Family Medicine; Referring Provider Nurse Practitioner Gerontology; Visit Provider Nurse Practitioner Gerontology
DX: R42 Dizziness and giddiness (principal)
CPT/HCPCS: 93880

== ENCOUNTER → 2023-06-07 | Outpatient (CLI) | payer MEDICARE, SELFPAY ==
[2023-06-07 10:57] LABS: AST(SGOT) 19 U/L (15-37); Alanine Aminotransfer ALT/SGPT 32 U/L (13-56); Albumin, Serum 3.9 g/dL (3.2-5.0); Alkaline Phosphatase 69 U/L (45-117); Bilirubin, Direct 0.18 mg/dL (0.00-0.30); Cholesterol 145 mg/dL (200); Globulin 2.8 g/dL (2.2-4.2); High Density Lipoprotein 61 mg/dL; Protein, Total 6.7 g/dL (6.4-8.2); Triglycerides 50 mg/dL; Very Low Density Lipoprotein 10 mg/dL (5-40)
== END | disposition home or self-care (01) ==
LOC: LAB 10:26
PROVIDERS: PCP Family Medicine; Referring Provider Nurse Practitioner Gerontology; Visit Provider Nurse Practitioner Gerontology
DX: E78.00 Pure hypercholesterolemia, unspecified (principal)
CPT/HCPCS: 36415; 80061; 80076

== ENCOUNTER → 2023-07-08 | Outpatient (CLI) | payer MEDICARE, SELFPAY ==
--- NOTE | 2023-07-08 12:37 | CT_ITS ---
STUDY: LOW DOSE CT LUNG CANCER SCREENING REASON FOR EXAM: Female, 73 years old. Lung cancer screening -- and gt;20 pk yr hx;current smoker; asymptomatic RADIATION DOSAGE (If Supplied By Facility): CTDIvol = ( 3.02 ) mGy, DLP = ( 92.52 ) mGycm TECHNIQUE: No contrast was administered. Low dose technique was utilized (average mAS-38 and kVp 120). 1.25 mm axial source images with a slice interval of 1.25-mm were reconstructed in lung windows. 2.5 mm axial source images with a slice interval of 2.5-mm were reconstructed in lung windows. 5.0 mm axial source images with a slice interval of 5.0-mm were reconstructed in soft tissue windows. COMPARISON: Comparison is made with prior study date February 19, 2022. NODULES: Emphysema: Emphysematous changes more pronounced in the upper lobes. Stable scarring at the lung apices more prominent in the right lung apex. Stable 3 mm subpleural nodule in the right upper lobe. Endobronchial lesion: None Aorta: Atherosclerotic plaque formation of the aortic arch. CORONARY ARTERIES: Coronary artery calcification is seen. Heart: Calcification of the mitral valve annulus. Pulmonary artery: Unremarkable Mediastinal nodes: Unremarkable Other chest and abdominal findings: CT/Low Dose CT Lung Screening IMPRESSION: Lung-RADS category 2 - Continue annual screening with LDCT in 12 months. IMPORTANT NOTES FOR USE: ACR Lung-RADS Version 1.1 Assessment Categories Release Date: 2018 Category: Coded 0-4 bases on nodule(s) with highest degree of suspicion. Negative screen is defined as categories 1 and 2; a positive screen is defined as categories 3 and 4. Category 3 and 4A nodules that are unchanged on interval CT should be coded as category 2, and individuals returned to screening in 12 months. Category 4X: Category 3 or 4 nodules with additional imaging findings that increase the suspicion of lung cancer, such as spiculation, GGN that doubles in size in 1 year, enlarged lymph notes, etc. Category Modifiers: S (significant finding unrelated to lung cancer) Electronically Signed: Misha Troncoso MD at 15:29 EST ,
--- OUTSIDE RECORDS SUMMARY | 2023-07-08 12:59 | XMS RPT_ITS | CCD ---
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 Name Role Phone SEAL HARBOR, ASHLEY Primary Care Unavailable SEAL HARBOR, ASHLEY Attending Unavailable SEAL HARBOR, ASHLEY Admitting Unavailable SEAL HARBOR, ASHLEY PAC Consulting Unavailable PROVIDER, UNKNOWN Consulting Unavailable SEAL [facility]BOR, ASHLEY Primary Care Unavailable SEAL [facility]BOR, ASHLEY Attending Unavailable SEAL HARBOR, ASHLEY PAC Consulting Unavailable SEAL HARBOR, ASHLEY Admitting Unavailable PROVIDER, UNKNOWN Consulting Unavailable SEAL [facility]BOR, ASHLEY Primary Care Unavailable SEAL [facility]BOR, ASHLEY Attending Unavailable SEAL HARBOR, ASHLEY Admitting Unavailable SEAL HARBOR, ASHLEY PAC Consulting Unavailable PROVIDER, UNKNOWN Consulting Unavailable Problems Active Problems Problem Classification Problem Date Documented Da te Episodic/Chronic Abdominal pain (2 sources) Unspecified abdominal pain; Translations: [Unspecified abdominal pain] Onset: 10-21-2022 Episodic Conditions associated with dizziness or vertigo (1 source) Dizziness and giddiness; Translations: [Dizziness and giddiness] Onset: 06-24-2023 Episodic Hepatitis (1 source) Chronic viral hepatitis C; Translations: [Chronic viral hepatitis C] Onset: 10-21-2022 Chronic Past or Other Problems Problem Classification Problem Date Documented Date Episodic/Chronic Other screening for suspected conditions (not mental disorders or infectious disease) (4 sources) Encounter for screening for cardiovascular disorders; Translations: [Encounter for screening for diabetes mellitus] Onset: 10-21-2022 Episodic Results Test Name Value Interpretation Reference Range Facil ity Encounters Encounter Date Encounter Type Care Provider Facility Start: 06-25-2023 End: 06-25-2023 ambulatory [facility] Start: 06-24-2023 End: 06-24-2023 ambulatory [facility] Start: 10-21-2022 End: 10-21-2022 ambulatory [facility] Payers Date Payer Category Payer Medicare [id number] 1950 Unknown [id number] 1950 Unknown [id number] 1950 Unknown [id number] Summary Purpose Family History No Family History Records FoundNo Family History Records FoundNo Family History Records Found Advance Directives No Advanced Directives Records FoundNo Advanced Directives Records FoundNo Advanced Directives Records Found Additional Source Comments INFORMATION SOURCE (unrecogn ized section and content) DATE CREATED AUTHOR AUTHOR'S ORGANIZ ATION 06/27/2023 [facility] DATE CREATED AUTHOR AUTHOR'S ORGANIZ ATION 06/28/2023 [facility] FOR RECORDS PERTAINING TO PATIENTS WHO ARE OR HAVE BEEN ENROLLED IN A CHEMICAL DEPENDENCY/SUBSTANCEABUSE PROGRAM, SOME INFORMATION MAY BE OMITTED. This clinical summary was aggregated from multiple sources. Caution should be exercised in using it in the provision of clinical care. This summary normalizes information from multiple sources, and as a consequence, information in this document may materially change the coding, format and clinical context of patient data. In addition, data may be omitted in some cases. CLINICAL DECISIONS SHOULD BE BASED ON THE PRIMARY CLINICAL RECORDS. [facility]. provides no warranty or guarantee of the accuracy or completeness of information in this document.
== END | disposition home or self-care (01) ==
LOC: CT 12:37
PROVIDERS: PCP Family Medicine; Referring Provider Nurse Practitioner Family; Visit Provider Nurse Practitioner Family
DX: Z87.891 Personal history of nicotine dependence (principal)
CPT/HCPCS: 71271

== ENCOUNTER → 2024-10-05 | Outpatient (CLI) | payer MEDICARE, SELFPAY ==
--- NOTE | 2024-10-05 14:01 | CT_ITS ---
PROCEDURE: LOW DOSE CT LUNG SCREENING 10/05/2024 REASON FOR EXAM: LUNG CANCER SCREENING TECHNIQUE: Low Dose CT Lung screening without contrast. Coronal and Sagittal reconstruction series were provided. One or more dose reduction techniques were used (e.g., Automated exposure control, adjustment of the mA and/or kV according to patient size, use of iterative reconstruction technique). REFERENCE LINK: [employer] Lung-RADS RADIATION DOSE SUMMARY: CTDlvol: 3.02 mGy DLP: 89.12 mGycm COMPARISON: None. FINDINGS: PULMONARY NODULES: (Only nodules >3mm are reported) Nodules described below are on series 1 unless otherwise specified. Pulmonary Nodules: No suspicious pulmonary nodules are seen. Hardware:None Lymph Nodes:No mediastinal lymph nodes are seen. Heart and Vasculature:Coronary artery calcifications are noted.Calcification of the mitral valve annulus. Coronary Artery Calcifications: Present Lungs and Airways: Mild emphysematous changes are present. Pleura:Unremarkable Upper Abdomen:Unremarkable Bones:Degenerative changes of the thoracic spine. CT/Low Dose CT Lung Screening IMPRESSION: No suspicious nodules are seen. Coronary artery calcification (CAC) is is present Lung-RADS Category: 2 BENIGN (BASED ON IMAGING FEATURES OR INDOLENT BEHAVIOR). RECOMMEND 12-MONTH SCREENING LDCT. Other Significant Findings: None. Reading Location: [place] [id number]
== END | disposition home or self-care (01) ==
LOC: CT 14:00
PROVIDERS: PCP Family Medicine; Referring Provider Nurse Practitioner Family; Visit Provider Nurse Practitioner Family
DX: Z12.2 Encounter for screening for malignant neoplasm of respiratory organs (principal); Z87.891 Personal history of nicotine dependence
CPT/HCPCS: 71271

== ENCOUNTER → 2025-01-06 | Outpatient (CLI) | payer MEDICARE, SELFPAY ==
--- NOTE | 2025-01-06 09:12 | ECHOCS_ITS ---
Reason For Study : CAD/ASHD Procedure This was a 2D Doppler, Color Flow transthoracic echocardiogram. The study was technically difficult. Contrast injection was performed. Exam performed in department. Left Ventricle Normal LV size. Left ventricular systolic function is normal. The left ventricular ejection fraction is 65 %. No regional wall motion abnormalities noted. Right Ventricle Normal RV size. Normal systolic function. Atria Normal left atrium. Normal right atrium. Mitral Valve There is moderate to severe mitral annular calcification. Mild (1+) eccentric mitral valve insufficiency. Tricuspid Valve Normal tricuspid valve. Aortic Valve Trisinus/trileaflet aortic valve. Mild (1+) aortic valve insufficiency. Pulmonic Valve Normal pulmonic valve. Great Vessels Mild to moderately dilated aortic root. The pulmonary artery is normal size. Inferior vena cava collapse with sniff. Pericardium/Pleural No pericardial effusion. Medication 22 gauge I.V. with prn adaptor inserted into right arm. Diluted definity 2ml given slow IV push to enhance endocardial definition. MMode/2D Measurements & Calculations LVIDd: 3.5 cm IVSd: 1.1 cm LAV(MOD- bp): 41.1 ml LVIDs: 2.7 cm LVPWd: 1.8 cm FS: 21.0 % LAV(MOD- bp) Indexed: 25.8 ml/m2 LAV(MOD- sp2): 38.9 ml LAV(MOD- sp4): 42.4 ml SV(MOD-sp4): 48.7 ml SV(sp4- el): 49.9 ml LVAd ap4: 29.3 cm2 LVLd ap4: 7.2 cm SI(MOD-sp4): 30.5 ml/m2 EDV(MOD-sp4): 98.7 ml EDV(sp4-el): 101.4 ml LVAs ap4: 19.1 cm2 LVLs ap4: 6.0 cm ESV(MOD-sp4): 50.0 ml ESV(sp4-el): 51.6 ml EF(MOD-sp4): 49.3 % EF(sp4-el): 49.1 % LA dimension(2D): 3.3 cm LA A4 area: 16.3 cm2 RA A4 area: 10.9 cm2 Time Measurements MV dec time: 0.28 sec Doppler Measurements & Calculations MV E max rancho: 98.6 cm/sec Lat Peak E' Rancho: 4.3 cm/sec Med Peak E' Rancho: 5.8 cm/sec MV A max rancho: 136.7 cm/sec E/E' lat: 22.9 E/E' med: 17.0 MV E/A: 0.72 MV V2 max: 153.4 cm/sec MV dec slope: 353.3 cm/sec2 Ao V2 max: 135.2 cm/sec MV max P.4 mmHg Ao max P.3 mmHg MV V2 mean: 90.6 cm/sec Ao V2 mean: 91.8 cm/sec MV mean P.8 mmHg Ao mean P.8 mmHg MV V2 VTI: 49.4 cm Ao V2 VTI: 29.6 cm AV (velocity ratio): 0.94 AI max rancho: 262.7 cm/sec LV V1 max: 129.8 cm/sec PA V2 max: 76.7 cm/sec AI max P.6 mmHg LV V1 max P.7 mmHg PA V2 mean: 58.2 cm/sec AI dec slope: 191.8 cm/sec2 LV V1 mean P.2 mmHg AI P1/2t: 401.2 msec LV V1 mean: 82.4 cm/sec LV V1 VTI: 27.7 cm ECHO/Echo Complete W/ Contrast Interpretation Summary Normal LV size. Left ventricular systolic function is normal. The left ventricular ejection fraction is 65 %. Mild to moderately dilated aortic root. There is moderate to severe mitral annular calcification. Mild (1+) aortic valve insufficiency. Ordering Physician: Eloy Chowdary Referring Physician: Eloy Chowdary Performed By: Teresa Dickerson RCS
== END | disposition home or self-care (01) ==
LOC: CVS 08:57
PROVIDERS: PCP Family Medicine; Referring Provider Internal Medicine Cardiovascular Disease; Visit Provider Internal Medicine Cardiovascular Disease
DX: I25.10 Atherosclerotic heart disease of native coronary artery without angina pectoris (principal)
CPT/HCPCS: 93306; Q9957; A4216; C8929

== ENCOUNTER → 2025-02-03 | Outpatient (CLI) | payer MEDICARE, SELFPAY ==
--- NOTE | 2025-02-03 13:54 | CT_ITS ---
PROCEDURE: CTA CHEST W/WO CONTRAST 02/03/2025 REASON FOR EXAM: DILATED AORTIC ROOT Follow-up examination. TECHNIQUE: CTA CHEST W/WO CONTRAST Multiplanar Sagittal and Coronal images were obtained. 3D post processing was performed CONTRAST: Isovue 370 VOLUME: 100 mL One or more dose reduction techniques were used (e.g., Automated exposure control, adjustment of the mA and/or kV according to patient size, use of iterative reconstruction technique). RADIATION DOSE SUMMARY: CTDlvol: 10 mGy DLP: 298.34 mGycm COMPARISON: Prior study dated October 05, 2024 FINDINGS: Hardware: None Lymph nodes: Small benign-appearing bilateral axillary lymph nodes. Heart: The heart is nonenlarged. Coronary artery calcification is seen. Thoracic Aorta: Dilatation of the root of the ascending thoracic aorta measuring 42.9 mm. Pulmonary Vessels: Unremarkable Lungs and Airways: Mild emphysematous changes are present. Pleura: No pleural effusion. Upper Abdomen: Unremarkable Bones: Degenerative changes of the thoracic spine. CT/CTA Chest W/WO Contrast IMPRESSION: Dilatation of the root of the ascending thoracic aorta with a transverse dimens ion of 42.9 mm. Reading Location: [id number]
== END | disposition home or self-care (01) ==
LOC: CT 13:54
PROVIDERS: PCP Family Medicine; Referring Provider Student in an Organized Health Care Education/Training Program; Visit Provider Student in an Organized Health Care Education/Training Program
DX: I77.810 Thoracic aortic ectasia (principal)
CPT/HCPCS: 71275; Q9967